=== PATIENT | male | born 1995 | race Caucasian/White ===

== ENCOUNTER 2025-02-19 13:08 | Emergency (ER) | payer OTHER, SELFPAY ==
--- OUTSIDE RECORDS SUMMARY | 2025-02-19 13:11 | XMS_ITS | Clinical Summary ---
Author Organization [facility] Address [address] [place] [address] Care Team Providers Care Stitch Bonding Machine Tender Name Role Phone Ratna Gamez DO Primary Care Provider [phone] Source Comments PLEASE NOTE, if this patient is a minor, it may be UNLAWFUL to discuss sensitive information that is contained in these records (such as FAMILY PLANNING, MENTAL HEALTH or SUBSTANCE ABUSE) with the minor patient's parent or other person without the patient's specific authorization.[facility] Allergies No known active allergies Active Problems Problem Noted Date Diagnosed Date Encounter for physical examination 12/21/2023 Assessment & Plan (12/21/2023 1:27 PM EDT): - BP: 107/67, BMI: 23.39 - A1c, Lipids : Not indicated - Vaccines: COVID 06/2023, Flu 04/2023, TDAP 04/2023 - STI screening: Declined - DEXA, Colonoscopy: Not indicated Educated on healthy eating, sleeping hygiene, water intake, physical activity Ordered titers and quant-gold TB for school requirement, provided current immunization records > will faxed over to school, will contact pt if needs vaccination for low immunity Plan f/u in one year, unless need to be seen earlier Immunizations Immunization Administration Dates Next Due DTAP 04/13/2006 DTP 09/16/1998, 5,06/15/1994,04/14,02/12/1994 Flu, Multi Dose 0.5 ML 05/02/2023 Flu, Preservative Free 06/27/2022,07/09/2020, HEP B, PED/ADOL 07/06/2005,08/12/2004,07/12/2004 HPV 9 (Gardasil) 07/09/2020,11/05/2018, 8 Hep A, Ped/adol, 2 Dose 03/19/2012 Hep A, adult 02/04/2022 Hib (HbOC) 08/14/1995, 4,04/14/1994,02/12 IPV (IPOL) 06/15/1994,04/14/1994,02/12/1994 MMR (MMR II/Priorix) 12/27/2023,03/23/20,04/13/2006,09/16,12/16/1994 OPV, Trivalent 09/16/1998 PNEUMOCOCCAL POLYSACCHARIDE PPV23 (Pneumovax 23) 03/19/2012 Pfizer COVID-19 (Comirnaty), Mrna, Lnp-s, Pf, Shashank-sucrose, 30 Mcg/0.3 Ml, 12yr+ 07/17/2023 TDAP 05/02/2023,07/09/2020 Varicella (Varivax), Live Vaccine 12/27/2023 Family History Medical History Relation Name Comments Leukemia Brother 1 Depression Brother 2 Diabetes Father Diabetes Mellitus II Father Hypertension Father Cancer Maternal Grandfather High Cholesterol Mother Hypertension Mother Breast cancer Neg Colon Cancer Neg Relation Name Status Comments Brother 1 Brother 2 Alive Father Alive Maternal Grandfather Mother Alive Social History Tobacco Use Types Packs/Day Years Used Date Smoking Tobacco: Never Smokeless Tobacco: Never Tobacco Cessation:Counseling Given: Not Answered Alcohol Use Standard Drinks/Week Comments Yes 3 (1 standard drink = 0.6 oz pure alcohol) wine, beer, sometimes mixed drinks Social Connections Answer Date Recorded Connectedness 0 05/05/2024 Financial Resource Strain Answer Date R ecorded Financial Resource Strain 0 2019 Stress Answer Date Recorded Stress 0 02/04/2020 Physical Activity Answer Date Recorded Physical Activity 0 02/04/2020 Food Insecurity Answer Date Recorded Food 0 07/19/2022 Transportation Needs Answer Date Record ed Transportation 0 07/19/2022 Housing Stability Answer Date Recorded Housing 0 07/19/2022 Safety and Environment Answer Date Mark rded Safety 0 07/19/2022 Utilities Answer Date Recorded Utilities 0 07/19/2022 Employment Answer Date Recorded Employment 0 02/04/2020 Sex and Gender Information Value Date Recorded Sex Assigned at Not on file Legal Sex Male 10:59 AM PDT Gender Identity Male 02/12/2020 2:06 PM PDT Sexual Orientation Straight 02/12/2020 2: 06 PM PDT Occupation Industry Job Start Date Job End Date student Not on file Not on file Not on file Last Filed Vital Signs Vital Sign Reading Time Taken Comments Blood Pressure 107/67 12/19/2023 1:54 PM EDT Pulse 64 12/19/2023 1:54 PM EDT Temperature 36.5 C (97.7 F) 12/19/2023 1:54 PM EDT Respiratory Rate - - Oxygen Saturation 95% 12/19/2023 1:5 4 PM EDT Inhaled Oxygen Concentration - - Weight 73.9 kg (163 lb) 12/19/2023 1:54 PM EDT Height 177.8 cm (5' 10) 07/19/2022 3:2 0 PM EST patient reported Body Mass Index 23.39 07/19/2022 3:20 PM EST Plan of Treatment Health Maintenance Due Date Last Done Comments Anxiety Screening 1993 Tobacco Screening 1993 [id number] ( season) 2024 07/17/2023, 05/11/2022, 07/25/2021, Additional history exists Alcohol and Drug Screen 08/28/2024 12/19/2023, 07/19 Depression Annual Screen 08/28/2024 12/17/2023 Annual Wellness (Adult): Indicated (All Coverage) 12/18/2024 12/19/2023, 07/19/2022 Imm-Influenza (Season Ended) 04/28/202512/2022, 06/27/2022, 07/09/2020, Additional history exists Hypertension Screening (#1) 12/18/2026 Imm-DTaP/Tdap/Td (9 - Td or Tdap) 05/02/2033 05/02/2023, 07/09/2020, 04/13/2006, Additional history exists Imm-Hepatitis B Discontinued 07/06/2005, 07/28, 07/12/2004 HIV Screening Completed 07/19/2022, 01/26, 02/04/2022, Additional history exists Hepatitis C Screening Completed 07/19/2022 , 02/04/2022, 02/17/2017 Procedures Procedure Name Priority Date/Time Associated Diagnosis Comments IAAD IA HIV-1 AG W/HIV-1 & HIV-2 ANTBDY SINGLE Routine 07/19/2022 3:27 PM EST Encounter for medical examination to establish care HEPATITIS C ANTIBODY WITH RFLX TO HCV RNA PCR W/RFLX TO GENOTYPE Routine 07/19/2022 3:27 PM EST Encounter for medical examination to establish care from Last 3 Months or Most Recently Relevant to Health Maintenance Results * Hep C Antibody with Reflex PCR then Reflex Genotype ([facility]) (07/19/2022 3:27 PM EST) HEPATITIS C ANTIBODY NON-REACTI VE NON-REACTI VE [facility] Blood Blood / Unknown 07/19/2022 3 :27 PM EST 07/19/2022 3:34 PM EST us Dior Kong MD LAB - BLOOD DRAW Final Result [facility] [address] [place] [address], * HIV-1/2 Ag+Ab, 4th Gen w/ Reflex (Screening Test) (07/19/2022 3:27 PM EST) HIV AG/AB COMBINED QUALITATIVE NON-REACTI VE NON-REACT MICHAEL [facility] Blood Blood / Unknown 07/19/2022 3 :27 PM EST 07/19/2022 3:35 PM EST us Dior Kong MD LAB - BLOOD DRAW Final Result [facility] [address] [place] [address], [place] [phone] from Last 3 Months or Most Recently Relevant to Health Maintenance Insurance [employer] [facility] Member Subscriber Plan / Payer (Ef fective 2022-Present) Name:Shilo Johnson Relation to Subscriber:Self Name:Shilo Johnson Payer ID:[id number] Group ID:[id number] Type:Medicaid Address: [address] [address] [place] [address] Care Teams Stitch Bonding Machine Tender Relationship Specialty Start Date End Date Ratna Gamez DO [address] [place] [address] PCP - General 08/04/23
--- OUTSIDE RECORDS SUMMARY | 2025-02-19 13:11 | XMS_ITS | Clinical Summary ---
Author Organization [facility] Address [address] [place] [address] Care Team Providers Care Pipe Crew Foreman Name Role Phone Unavailable Primary Care Provider Unavailabl e Source Comments You are receiving this document as you are listed as the primary care provider,follow-up provider, or the patient has been referred to you for consultation.This is in compliance with the Medicare and[facility] Incentive Program,which states Providers who transition their patient to another setting of careor provider of care or refers their patient to another provider of care shouldprovide summary care record for each transition of care or referral. [facility] Allergies No known active allergies Medications triamcinolone acetonide (KENALOG) 0.1 % creamIndication s:Allergic Contact Dermatitis Apply topically two times a day. Indications: Allergic Contact Dermatitis 15 g 1 2 Active Active Problems No known active problems Immunizations Immunization Administration Dates Next Due 9vHPV (Gardasil 9) 07/09/2020,11/05/2018, 018 DTP 09/16/1998, 5,06/15/1994,1993,02/12/1994 DTaP 04/13/2006 HepA Adult (19+ yrs) 02/04/2022 HepA Ped/Adol (1-18 yrs) 03/19/2012 HepB Ped/Adol (0-18 yrs) 07/06/2005,08/12/2004,1 09/11/2003 Hib (HbOC) 08/14/1995, 4,04/14/1994,1993 IPV (Polio) 06/15/1994,04/14/1994,02/12/1994 Influenza IIV4 (Quadrivalent ) 0.5mL (51753) 07/09/2020,06/18/2014 MMR 03/23/2022, 6,09/16/1998,1994 Moderna Monovalent 12+ 07/25/2021 Moderna Monovalent Booster 12+ 12/09/2020,2020 OPV, Trivalent (Orimune or tOPV) 09/16/1998 PPSV23 (Pneumovax) 03/19/2012 Tdap 07/09/2020 Family History Medical History Relation Name Comments No Known Problems Father No Known Problems Mother No Known Problems Sister Relation Name Status Comments Father Alive Mother Alive Sister Alive Social History Tobacco Use Types Packs/Day Years Used Date Smoking Tobacco: Never Smokeless Tobacco: Never Alcohol Use Standard Drinks/Week Comments Yes 8 (1 standard drink = 0.6 oz pur e alcohol) PHQ-2 Answer Date Recorded PHQ-2 Score 0 02/04/2022 Sex and Gender Information Value Date Recorded Sex Assigned at Not on file Legal Sex Male 10:54 AM CDT Gender Identity Not on file Sexual Orientation Not on file Last Filed Vital Signs Vital Sign Reading Time Taken Comments Blood Pressure 110/59 03/23/2022 7:15 AM CDT Pulse 70 03/23/2022 7:15 AM CDT Temperature - - Respiratory Rate - - Oxygen Saturation 98% 09/02/2021 2:32 PM 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 Inhaled Oxygen Concentration - - Weight 72.1 kg (159 lb) 03/23/2022 7:15 AM CDT Height 177.8 cm (5' 10) 03/23/2022 7:15 AM CDT Body Mass Index 22.81 03/23/2022 7:15 AM CDT Plan of Treatment Health Maintenance Due Date Last Done Comments Adult Preventive Visit 02/05/2024 02/04/2022 COVID-19 Vaccine ( season) 2024 07/25/2021, 12/09/2020, 11/10/2020 Influenza Vaccine (Season Ended) 2025 07/09/2020, 06/18/2014 DTaP/Tdap/Td Vaccine (8 - Tdap) 07/09/2030 07/09/2020, 04/13/2006, 09/16/1998, Additional history exists Zoster/Shingles Vaccine (1 of 2) 12/14/2043 Hib Vaccine Completed 08/14/1995, 05/28, 04/14/1994, Additional history exists IPV (Polio) Vaccine Completed 09/16/1998, 06/15/1994, 04/14/1994, Additional history exists HepB Vaccine Completed 07/06/2005, 07/28, 07/12/2004 Pneumococcal Vaccine Aged Out 03/19/2012 No long er eligible based on patient's age to complete this topic HPV Vaccine Completed 07/09/2020, 10/26, 06/07/2018 HIV Screening (Preventive Services) Completed 02/04/2022, 07/09/2020 Hep C Screening (Preventive Services) Completed 02/04/2022 HepA Vaccine Completed 02/04/2022, 03/19/2012 MMR Vaccine Completed 03/23/2022, 03/28, 09/16/1998, Additional history exists MCV4 Vaccine Aged Out No longer eligi ble based on patient's age to complete this topic Meningococcal B Vaccine Aged Out No l onger eligible based on patient's age to complete this topic Procedures Procedure Name Priority Date/Time Associated Diagnosis Comments HIV 1/2 AG/AB 4TH GEN Routine 02/04/2022 4:55 PM CDT Screening for HIV (human immunodeficiency virus) HEPATITIS C ANTIBODY, WITH REFLEX (ANTI-HCV) Routine 02/04/2022 4:55 PM CDT Need for hepatitis C screening test from Last 3 Months or Most Recently Relevant to Health Maintenance Results * HIV 1/2 Ag/Ab 4th Generation (02/04/2022 4:55 PM CDT) HIV 1/2 Antigen/Antib jacquie (4th generation) Negative (Non Reactive) Negative (Non Reactive) 02/04/2022 10:08 PM CDT [facility] Comment:HIV-1 p24 Antigen an d HIV-1/HIV-2 Antibody not detected Blood Venipuncture / Unknown 02/04/2022 4:55 PM CDT 02/04/2022 4:55 PM CDT Vi A Jessica CUETO, ELIZABETH LAB_1 Final R esult Performing Organization Address [facility] de Phone Number [facility] [address] [place] [address] * Hepatitis C Antibody, with Reflex (02/04/2022 4:55 PM CDT) Hepatitis C Antibody Negative (Non Reactive) Negative (Non Reactive) 02/04/2022 10:08 PM CDT [facility] Comment:Antibodies to HCV no t detected. Does not exclude the possiblity of exposure to HCV. Blood Venipuncture / Unknown 02/04/2022 4:55 PM CDT 02/04/2022 4:55 PM CDT Vi Lopez APRN, CNP LAB_1 Final R esult Performing Organization Address [facility] Co de Phone Number [facility] [address] [place] [address] from Last 3 Months or Most Recently Relevant to Health Maintenance Insurance [facility]
--- OUTSIDE RECORDS SUMMARY | 2025-02-19 13:11 | XMS_ITS | Clinical Summary ---
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 Immunizations Immunization Administration Dates Next Due DTP 09/16/1998, 5,06/15/1994,04/14/1994,1993 DTaP 04/13/2006 HIB HbOC (HibTITER) 08/14/1995,06/15/1994,1993,02/12/1994 Hepatitis B (Peds) 07/06/2005,08/12/2004, 004 Inactivated Polio Vaccine 06/15/1994,04/14/1994, 02/12/1994 MMR 04/13/2006,09/16/1998,12/16/1994 Oral Polio Vaccine 09/16/1998 Social History Tobacco Use Types Packs/Day Years Used Date Smoking Tobacco: Never Smokeless Tobacco: Never Tobacco Cessation:Counseling Given: Yes Alcohol Use Standard Drinks/Week Comments Yes 0 (1 standard drink = 0.6 oz pur e alcohol) occasional Social Connections Answer Date Recorded Frequency of Communication with Friends and Fami ly Not on file 08/28/2021 Financial Resource Strain Answer Date R ecorded Difficulty of Paying Living Expenses Not on file 08/28/2021 Difficulty of Paying Living Expenses Not on file 08/28/2021 Sex and Gender Information Value Date Recorded Sex Assigned at Not on file 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 Gender Identity Not on file Sexual Orientation Not on file Obstetrics History Last Filed Vital Signs Vital Sign Reading Time Taken Comments Blood Pressure 106/65 04/25/2017 11:28 AM CDT Pulse 44 04/25/2017 11:28 AM CDT Temperature 36.4 C (97.5 F) 02/17/2017 10:53 AM CDT Respiratory Rate 12 08/16/2013 9:59 AM SHOT POLISHER Oxygen Saturation 100% 04/25/2017 11:28 AM CDT Inhaled Oxygen Concentration - - Weight 69.9 kg (154 lb 3.2 oz) 04/25/2017 11:28 AM CDT Height 179.1 cm (5' 10.5) 04/25/2017 11:28 AM C DT Body Mass Index 21.81 04/25/2017 11:28 AM CDT Plan of Treatment Health Maintenance Due Date Last Done Comments Tdap 2004 Depression screening for age 12+ 2005 Tetanus booster 2013 BMI (ht and wt on same day) for age 18+ 04/25/2018 04/25/2017, 02/17/2017, 06/15/2016 COVID-19 vaccine series ( season) 2024 07/17/2023 Influenza Vaccine (Season Ended) 2025 Hepatitis B series for 19+ Completed 07/06, 08/12/2004, 07/12/2004 HIV for age 15-65 Completed 02/17/2017 Hepatitis C screening for ag e 18-79 Completed 02/17/2017 Pneumococcal series for age 6-49 Aged Out No longer eligible b ased on patient's age to complete this topic Procedures Procedure Name Priority Date/Time Associated Diagnosis Comments ANTI HIV 1/2 Routine 02/17/2017 11:28 AM CDT Routine screening for STI (sexually transmitted infection) ANTI HCV Routine 02/17/2017 11:28 AM CDT Routine screening for STI (sexually transmitted infection) from Last 3 Months or Most Recently Relevant to Health Maintenance Results * ANTI HCV (02/17/2017 11:28 AM CDT) HEPATITIS C ANTIBODY Non-Reacti ve Non-Reacti ve 02/17/2017 5:35 PM CDT [facility] Blood BLOOD SPECIMEN / Unknown Venipuncture / Unknown 02/17/2017 11:28 AM CDT 02/17/2017 11:28 AM CDT Narrative [facility] - 02/17/2017 5:35 PM CDT Antibodies to HCV not detected; does not exclude the possibility of exposure to HCV. Yoly Bianchi MD SEND OUTS Final Resu lt [facility] [address] [place] [address], * ANTI HIV 1/2 (02/17/2017 11:28 AM CDT) [facility] HIV-1/HIV-2 ANTIBODY Non-Reacti ve Non-Reacti ve 02/17/2017 5:35 PM CDT [facility] Blood BLOOD SPECIMEN / Unknown Venipuncture / Unknown 02/17/2017 11:28 AM CDT 02/17/2017 11:28 AM CDT Narrative [facility] - 02/17/2017 5:35 PM CDT HIV-1 p24 and HIV-1/HIV-2 Ab not detected Yoly Bianchi MD SEND OUTS Final Resu lt [facility] [address] [place] [address], from Last 3 Months or Most Recently Relevant to Health Maintenance Insurance [facility] [place] [place]O [id number] Care Teams Supervisor Shed Workers Relationship Specialty Start Date End Date Pcp, No . PCP - General 09/05/24
[2025-02-19 13:42] VITALS: BP 121/77; PULSE 61; RESP 16; TEMP 36.7; O2SAT 97; BMI 23.7
[2025-02-19 14:04] LABS: Appearance Urine Clear (Clear); Bilirubin Urine Negative (Negative); Blood Urine Negative (Negative); Color Urine Yellow (Yellow); Glucose Urine Negative (Negative); Ketones Urine Negative (Negative); Leukocyte Esterase Urine Negative (Negative); Nitrite Urine Negative (Negative); Protein Urine Negative (Negative); Specific Gravity Urine 1.015 (1.000-1.030); Urobilinogen Urine 0.2 (0.2-1.0); pH Urine 7.5 (5.0-8.5)
[2025-02-19 14:09] LABS: RBC Urine 0-2 (0-2); WBC Urine 0-2 (0-5)
--- NOTE | 2025-02-19 15:40 | CRLHL7_ITS ---
For Patients: As a result of the Century Cures Act, medical imaging exams and procedure reports are released immediately into your electronic medical record. You may view this report before your referring provider. If you have questions, please contact your health care provider. INDICATION: Suprapubic and groin discomfort, question prostatitis or UTI. TECHNIQUE: CT of the abdomen and pelvis acquired with 81 cc Isovue 370 IV contrast. Coronal and sagittal reconstructions. COMPARISON: None. FINDINGS: Lower chest: Unremarkable. Liver: Normal in size and attenuation. No suspicious masses. Gallbladder and bile ducts: Unremarkable. No biliary dilation. Spleen: Unremarkable. Pancreas: Unremarkable. Adrenal glands: Unremarkable. Kidneys, Ureters, and Bladder: Symmetric enhancement. Subcentimeter left renal cortical hypodensity is too small to characterize but likely a cyst. No hydronephrosis. No obstructing urinary calculi. Mild circumferential bladder wall thickening. Reproductive organs: No significant prostate enlargement or abnormal enhancement. GI tract/Peritoneum: No small bowel dilation. Large amount of stool in the ascending and transverse colon. The appendix is not identified, however there are no secondary signs of inflammation in the right lower quadrant. No intraperitoneal free air or fluid. Vasculature: Abdominal aorta is normal in caliber. Mesenteric arteries appear patent. Lymph nodes: No lymphadenopathy. Abdominal Wall: Unremarkable. Bones: Unremarkable for age. IMPRESSION: 1. Mild bladder wall thickening. No definite findings to suggest prostate inflammation. Correlate with urinalysis. 2. Large stool burden. 3. No other acute findings in the abdomen or pelvis. Please note that all CT scans at this facility use dose modulation, iterative reconstruction, and/or weight-based dosing when appropriate to reduce radiation dose to as low as reasonably achievable. Dictated by Shivani Chávez MD @ 02/19/2025 4:36:47 PM (Electronically Signed)
--- OUTSIDE RECORDS SUMMARY | 2025-02-19 15:55 | XMS_ITS | Clinical Summary ---
Author Organization [facility] Address [address] [place] [address] Phone Care Team Providers Care General Engineer Name Role Phone Casey Sifuentes MD Unavailable [phone] Social History Tobacco Use Types Packs/Day Years Used Date Smoking Tobacco: Never Assessed Comments Unknown Sex and Gender Information Value Date Recorded Sex Assigned at Unknown 01/23/2024 11:52 AM EDT Legal Sex Male 5:56 PM EST Gender Identity Not on file Sexual Orientation Not on file Plan of Treatment Not on file Care Teams General Engineer Relationship Specialty Start Date End Date Casey [place] [address] PCP - Insurance 07/19/22
--- OUTSIDE RECORDS SUMMARY | 2025-02-19 15:55 | XMS_ITS | Referral Summary ---
Author Organization [facility] Address [address] [place] [address] Phone Care Team Providers Care Health Services Administrator Name Role Phone Casey Sifuentes MD Unavailable [phone] Social History Tobacco Use Types Packs/Day Years Used Date Smoking Tobacco: Never Assessed Comments Unknown Sex and Gender Information Value Date Recorded Sex Assigned at Unknown 01/23/2024 11:52 AM EDT Legal Sex Male 5:56 PM EST Gender Identity Not on file Sexual Orientation Not on file Plan of Treatment Not on file Care Teams Health Services Administrator Relationship Specialty Start Date End Date [place] [address] PCP - Insurance 07/19/22
--- OUTSIDE RECORDS SUMMARY | 2025-02-19 15:55 | XMS_ITS | Clinical Summary ---
Author Organization [facility] Address [address] [address] Care Team Providers Care Customer Equipment Engineer Name Role Phone No Pcp, Per Patient Primary Care Provider Unavai lable Allergies No known active allergies Medications No known medications Active Problems Problem Noted Date Diagnosed Date Appendicitis 07/01/2022 Social History Tobacco Use Types Packs/Day Years Used Date Smoking Tobacco: Never Assessed Sex and Gender Information Value Date Recorded Sex Assigned at Not on file Legal Sex Male 6:52 PM EDT Gender Identity Not on file Sexual Orientation Not on file Last Filed Vital Signs Vital Sign Reading Time Taken Comments Blood Pressure 111/58 07/02/2022 8:19 AM EDT Pulse 49 07/02/2022 8:19 AM EDT Temperature 36.7 C (98 F) 07/02/2022 8:19 AM EDT Respiratory Rate 18 07/02/2022 8:19 AM EDT Oxygen Saturation 100% 07/02/2022 8:19 AM EDT Inhaled Oxygen Concentration - - Weight 74.8 kg (165 lb) 07/01/2022 3:40 PM EDT Height 180.3 cm (5' 11) 07/01/2022 3:40 PM EDT Body Mass Index 23.01 07/01/2022 3:40 PM EDT Plan of Treatment Health Maintenance Due Date Last Done Comments Varicella Vaccines (1 of 2 - 13+ 2-dose series) 04/20/2022 COVID-19 Vaccine ( season) 2024 05/11/2022, 07/25/2021, 12/09/2020, Additional history exists Depression Screening 08/28/2024 Influenza Vaccine (Season Ended) 2025 06/27/2022, 07/09/2020, 06/18/2014 DTaP/Tdap/Td Vaccines (8 - Td or Tdap) 07/09/2030 07/09/2020, 04/13/2006, 09/16/1998, Additional history exists HIB Vaccines Completed 08/14/1995, 05/28, 04/14/1994, Additional history exists IPV Vaccines Completed 09/16/1998, 05/28, 04/14/1994, Additional history exists Hepatitis B Vaccines Completed 07/06/2005, 08/12/2004, 07/12/2004 Pneumococcal Vaccine: Pediatrics (0 to 5 Years) and At-Risk Patients (6 to 49 Years) Aged Out 03/19/2012 No longer eligible based on patient's age to complete this topic HPV Vaccines Completed 07/09/2020, 10/26, 06/07/2018 Hepatitis A Vaccines Completed 02/04/2022, 03/19/20 12 Hepatitis C Screening Completed 02/04/2022, 022 MMR Vaccines Completed 03/23/2022, 03/28, 09/16/1998, Additional history exists HIV Screening Completed 07/19/2022 Meningococcal B Vaccine Aged Out No l onger eligible based on patient's age to complete this topic Meningococcal Vaccine Aged Out No fortino rizwan eligible based on patient's age to complete this topic Rotavirus Vaccines Aged Out No longer eligible based on patient's age to complete this topic Insurance [facility] Care Teams Customer Equipment Engineer Relationship Specialty Start Date End Date No Pcp, Per Patient [place] PCP - General 06/09/22
[2025-02-19 16:05] LABS: Basophils Absolute Auto 0.02 K/uL (0.00-0.30); Basophils Percent Auto 0.4 % (0.0-3.0); Eosinophils Absolute Auto 0.06 K/uL (0.00-0.50); Eosinophils Percent Auto 1.2 % (0.0-7.0); Hematocrit 42.1 % (37.0-53.0); Hemoglobin* 14.7 gm/dL (13.5-17.5); Immature Granulocytes Abs Auto 0.01 K/uL (0.00-0.30); Immature Granulocytes Pct Auto 0.2 %; Lymphocytes Absolute Auto 1.75 K/uL (0.90-2.90); Lymphocytes Percent Auto 34.8 % (20-44); Mean Corpuscular HGB Conc 35 gm/dL (32-36); Mean Corpuscular Hemoglobin 31 pg (26-34); Mean Corpuscular Volume 89 fL (80-100); Monocytes Percent Auto 8.3 % (0.0-11.0); Neutrophils Absolute Auto 2.77 K/uL (1.7-7.0); Neutrophils Percent Auto 55.1 % (42.0-72.0); Platelet Count* 211 K/uL (140-440); RDW Coefficient of Variation % 12.1 % (11.5-15.5); Red Blood Count 4.74 m/uL (4.30-5.90); White Blood Count* 5.03 K/uL (4.50-11.00)
--- NOTE | 2025-02-19 16:10 | ED.MALEGU ---
HPI - Male Genitourinary General Date Seen: 02/19/25 Chief complaint: Urogenital Problems, Male Stated complaint: Lower abdominal/pelvic pain Time Seen by Provider: 02/19/25 15:06 Source: patient Mode of arrival: ambulatory Limitations: no limitations History of Present Illness HPI Narrative: Visions a 28 would year old male presenting to the emergency department for lower abdominal and pelvic pain. He states he has been sexually active over the past few months and was tested negative for STDs shortly before started on antibiotics for UTI. He was started on antibiotics for UTI due to dysuria and lower abdominal pain on 02/11. Finished antibiotics but continues to have symptoms. States he has lower pelvic discomfort, suprapubic discomfort, urinary frequency, dysuria, cloudy urine, and small amount of penile discharge. States the discharge is mostly clear. He spoke to his primary care provider back in [place] and there was some concern because some prostatitis. Does state he has some improvement in symptoms after a bowel movement. Denies fevers, chills, chest pain, shortness of breath, headache, lightheadedness, dizziness. Has not noticed any genitalia lesions. Related Data Home Medications ?Medication ?Instructions ?Recorded ?Confirmed fluticasone propionate 50 1 spray intranasal DAILY PRN 02/19/25 02/19/25 mcg/actuation nasal spray,suspension (24 Hour Allergy Relief) Allergies Allergy/AdvReac Type Severity Reaction Status Date / Time No Known Drug Allergies Allergy Verified 02/19/25 13:41 Review of Systems Status of ROS: Reports: 10 or more systems reviewed and unremarkable except as noted in History and below PFSH PFS Social History Smoking Status: Never smoker How often do you have a drink containing alcohol: monthly or less AUDIT-C Alcohol total score: 1 Non-prescribed substance use: marijuana (any form) Non-prescribed substance use details: occasional thc use Exam Narrative: Exam Narrative: Const: Well-nourished, Well-developed, in mild distress Eyes: PERRL, no conjunctival injection, and symmetrical lids HENT: Atraumatic external nose and ears. Moist mucous membranes. Neck: Symmetric, trachea midline, No thyromegaly. CVS: RRR, No murmurs or gallops. Peripheral pulses 2+ and equal in all extremities RESP: Unlabored respiratory effort. Clear to auscultation bilaterally. GI: Mild suprapubic discomfort, Nondistended, No rebound or guarding. MSK:Extremities w/o deformity, Normal Active ROM Skin: Warm, Dry. No rashes or lesions. Neuro: Normal Muscle tone, No focal neurological deficits. Psych: Awake, Alert, & Oriented x3. Appropriate mood and affect. Const: Vital Signs, click to edit/add: Vital Signs - 24 hr 02/19/25 13:42 Temperature 98.0 F Pulse Rate [Pulse Oximeter] 61 Respiratory Rate 16 Blood Pressure [[facility] Upper Arm] 121/77 Pulse Oximetry 97 Oxygen Delivery Me thod Room Air Course Vital Signs Vital signs: Initial Vital Signs Temperature 98.0 F 02/19/25 13:42 Temperature Source Temporal Artery Scan 02/19/25 13:42 Pulse Rate 61 02/19/25 13:42 Pulse Rhythm Regular 02/19/25 13:42 Respiratory Rate 16 02/19/25 13:42 Blood Pressure 121/77 02/19/25 13:42 Blood Pressure Mean 91 02/19/25 13:42 Blood Pressure Position Sitting 02/19/25 13:42 Pulse Oximetry 97 02/19/25 13:42 Oxygen Delivery Method Room Air 02/19/25 13:42 Vital Signs Temperature 98.0 F 02/19/25 13:42 Pulse Rate 61 02/19/25 13:42 Respiratory Rate 16 02/19/25 13:42 Blood Pressure 121/77 02/19/25 13:42 Pulse Oximetry 97 02/19/25 13:42 Oxygen Delivery Method Room Air 02/19/25 13:42 Temperature 98.0 F 02/19/25 13:42 Pulse Rate 61 02/19/25 13:42 Respiratory Rate 16 02/19/25 13:42 Blood Pressure 121/77 02/19/25 13:42 Pulse Oximetry 97 02/19/25 13:42 Oxygen Delivery Method Room Air 02/19/25 13:42 MDM - Male Genitourinary MDM Narrative Medical decision making narrative: Patient is a 29-year-old male presenting for pelvic pain and penile discharge with some dysuria. His urinalysis was done in triage returned showing no signs of UTI. He is sexually active and I am concerned about gonorrhea and chlamydia. Has not had any sores and so for this is low on my list of concerns. Does have improved symptoms after bowel movement. Concerns include prostatitis, UTI, STD. Since he is also having lower abdominal pain will do a CT scan for better evaluation with a CBC and BMP. CT scan showed constipation but no other acute concerning abnormalities. There is some mild bladder wall thickening both the normal urine unlikely to be UTI. Lab work shows no acute concerning abnormalities. Gonorrhea chlamydia test are negative. He is having heterosexual sex with 1 other person. Has not had any receptive anal sex. I offered a prostate exam but he declined at this time. I have low concern for prostatitis. He does states been having large bowel movements. States he will just monitor his symptoms and if things get worse will follow up with his doctor in [place]. He will be discharged Lab Data Labs: Lab Results 02/19/25 02/19/25 02/19/25 Range/Units 13:55 16:00 16:30 WBC 5.03 (4.50-11.00) K/uL RBC 4.74 (4.30-5.90) m/uL Hgb 14.7 (13.5-17.5) gm/dL Hct 42.1 (37.0-53.0) % MCV 89 (80-100) fL MCH 31 (26-34) pg MCHC 35 (32-36) gm/dL RDW Coeff of Adarsh 12.1 (11.5-15.5) % Plt Count 211 (140-440) K/uL Neut % (Auto) 55.1 (42.0-72.0) % Lymph % (Auto) 34.8 (20-44) % [place] % (Auto) 8.3 (0.0-11.0) % Eos % (Auto) 1.2 (0.0-7.0) % Baso % (Auto) 0.4 (0.0-3.0) % Neut # (Auto) 2.77 (1.7-7.0) K/uL Lymph # (Auto) 1.75 (0.90-2.90) K/uL [place] # (Auto) 0.40 (0.00-0.90) K/UL Eos # (Auto) 0.06 (0.00-0.50) K/uL Baso # (Auto) 0.02 (0.00-0.30) K/uL Abs Immat Gran (auto) 0.01 (0.00-0.30) K/uL Imm/Tot Granulo (auto) 0.2 % Sodium 138 (135-149) mmol/L Potassium 4.2 (3.6-5.1) mmol/L Chloride 102 (96-114) mmol/L Carbon Dioxide 28 (20-32) mmol/L Anion Gap 8 (7-15) mEq/L BUN 19 (5-24) mg/dL Creatinine 0.5 (0.5-1.5) mg/dL Estimated Creat Clear 221.03 Estimated GFR 140 ml/min Glucose 94 (60-115) mg/dL Calcium 9.3 (8.4-10.6) mg/dL Urine Color Yellow (Yellow) Urine Appearance Clear (Clear) Urine pH 7.5 (5.0-8.5) Ur Specific [place] 1.015 (1.000-1.030) Urine Protein Negative (Negative) Urine Glucose (UA) Negative (Negative) Urine Ketones Negative (Negative) Urine Blood Negative (Negative) Urine Nitrite Negative (Negative) Urine Bilirubin Negative (Negative) Urine Urobilinogen 0.2 (0.2-1.0) Ur Leukocyte Esterase Negative (Negative) Urine RBC 0-2 (0-2) Urine WBC 0-2 (0-5) Ur Squamous Epith Cells None (None-Few) Urine Bacteria None (None) C.trachomatis Ampl DNA NOT DETECTED (No Detected) N.gonorrhoeae Ampl DNA NOT DETECTED (No Detected) Imaging Data CT scan abdomen pelvis: Attestation: I have reviewed the pertinent imaging results. Radiologist's impression: 1. Mild bladder wall thickening. No definite findings to suggest prostate inflammation. Correlate with urinalysis. 2. Large stool burden. 3. No other acute findings in the abdomen or pelvis. Please note that all CT scans at this facility use dose modulation, iterative reconstruction, and/or weight-based dosing when appropriate to reduce radiation dose to as low as reasonably achievable. Dictated by Shivani Chávez MD @ 02/19/2025 4:36:47 PM Discharge Plan Discharge Clinical Impression: Dysuria Patient Disposition: Home, Self-Care Condition: Stable Instructions: Dysuria (ED) Additional Instructions: Return to emergency department for new or worsening symptoms otherwise follow-up with your primary care provider. He did have a large amount of stool in your colon. Recommend you take MiraLax if you are having any difficulty with constipation. Prescriptions: No Action fluticasone propionate [24 Hour Allergy Relief] 50 mcg/actuation spray,suspension 1 spray intranasal DAILY PRN Rx Instructions: administer into each nostril Follow Up/Referrals: Prakash Caicedo MD [Staff Physician, Family Practice] Stand Alone Forms: [employer] Info Instructions
[2025-02-19 16:12] LABS: Slide Review Reflex No
[2025-02-19 16:17] LABS: Chloride* 102 mmol/L (96-114); Sodium* 138 mmol/L (135-149)
[2025-02-19 16:18] LABS: Potassium* 4.2 mmol/L (3.6-5.1)
[2025-02-19 16:20] LABS: Blood Urea Nitrogen* 19 mg/dL (5-24); Creatinine* 0.5 mg/dL (0.5-1.5); Est. Creatinine Clearance* 221.03; Estimated Glomerular Filt Rate 140 ml/min
[2025-02-19 16:21] LABS: Anion Gap 8 mEq/L (7-15); Calcium* 9.3 mg/dL (8.4-10.6); Carbon Dioxide* 28 mmol/L (20-32); Glucose* 94 mg/dL (60-115)
[2025-02-19 18:02] LABS: Chlamydia DNA Amplified* NOT DETECTED (No Detected); GC DNA Amplified* NOT DETECTED (No Detected)
== END 2025-02-19 18:15 | disposition home or self-care (01) ==
PROVIDERS: Emergency Provider Student in an Organized Health Care Education/Training Program
DX: R30.0 Dysuria (principal)
CPT/HCPCS: 36415; 74177; 80048; 81001; 85025; 87491; 87591; 99283; 99284; Q9967